=== PATIENT | male | born 1950 | race Caucasian/White ===

== ENCOUNTER 2016-10-15 07:42 | Outpatient (CLI) | payer MEDICARE, OTHER | END 2016-10-15 07:43 | disposition home or self-care (01) | DX: E78.5 Hyperlipidemia, unspecified (principal); J31.0 Chronic rhinitis ==

== ENCOUNTER 2017-11-10 08:00 | Outpatient (CLI) | payer MEDICARE, OTHER ==
[2017-11-10 12:44] LABS: BASOPHILS % (AUTO) 0.2 %; EOSINOPHILS # (AUTO) 0.2 10^3/uL (0.0-0.7); HGB - HEMOGLOBIN 14.4 g/dL (14.0-18.0); LYMPHOCYTES # (AUTO) 1.2 10^3/uL (1.5-3.5); LYMPHOCYTES % (AUTO) 27.9 %; MEAN CORPUSCULAR HEMOGLOBIN 33.1 pg (27.0-31.0); MEAN CORPUSCULAR HGB CONC 34.4 g/dL (32.0-36.0); MEAN CORPUSCULAR VOLUME 96.2 fL (80.0-94.0); MEAN PLATELET VOLUME 8.4 fL (7.4-11.4); MONOCYTES # (AUTO) 0.3 10^3/uL (0.0-1.0); MONOCYTES % (AUTO) 7.2 %; NEUTROPHILS # (AUTO) 2.5 10^3/uL (1.5-6.6); NEUTROPHILS % (AUTO) 59.7 %; PLT - PLATELET COUNT 184 10^3/uL (130-450); RED BLOOD COUNT 4.34 10^6/uL (4.70-6.10); RED CELL DISTRIBUTION WIDTH 12.7 % (12.0-15.0); WHITE BLOOD COUNT 4.3 x10^3/uL (4.8-10.8)
[2017-11-10 13:28] LABS: ALBUMIN 3.9 g/dL (3.2-5.5); ALBUMIN/GLOBULIN RATIO 1.1 (1.0-2.2); ALKALINE PHOSPHATASE 76 IU/L (42-121); ALT ALANINE AMINOTRANSFERASE 18 IU/L (10-60); AST ASPARTATE AMINOTRANSFERASE 23 IU/L (10-42); BILIRUBIN,TOTAL 1.1 mg/dL (0.2-1.0); BUN - BLOOD UREA NITROGEN 14 mg/dL (6-20); CALCIUM 8.9 mg/dL (8.5-10.3); CARBON DIOXIDE - CO2 27 mmol/L (21-32); CHLORIDE 105 mmol/L (101-111); CHOL/HDL RATIO 3.3 (<5.0); CHOLESTEROL 230 mg/dL; CREATININE 0.8 mg/dL (0.6-1.2); GFR - MDRD 96 (>89); GLUCOSE 98 mg/dL (70-100); HDL CHOLESTEROL 69 mg/dL; LDL CHOLESTEROL,CALCULATED 148 mg/dL; LDL/HDL RATIO 2.1 (<3.6); SODIUM 138 mmol/L (135-145); TOTAL PROTEIN 7.6 g/dL (6.7-8.2); VLDL CHOLESTEROL 13 mg/dL
== END 2017-11-10 08:01 ==
LOC: LAB.WCP 08:00
PROVIDERS: ATTEND Physician Assistant Medical
DX: I10 Essential (primary) hypertension (principal); N40.1 Benign prostatic hyperplasia with lower urinary tract symptoms; E78.5 Hyperlipidemia, unspecified
CPT/HCPCS: 36415; 80053; 80061; 85025; G0103; 83721; 84153

== ENCOUNTER 2018-07-03 09:08 | Outpatient (CLI) | payer MEDICARE, OTHER ==
[2018-07-03 14:04] LABS: ALBUMIN 4.2 g/dL (3.2-5.5); ALBUMIN/GLOBULIN RATIO 1.1 (1.0-2.2); ALKALINE PHOSPHATASE 86 IU/L (42-121); ALT ALANINE AMINOTRANSFERASE 18 IU/L (10-60); AST ASPARTATE AMINOTRANSFERASE 22 IU/L (10-42); BUN - BLOOD UREA NITROGEN 14 mg/dL (6-20); CALCIUM 9.2 mg/dL (8.5-10.3); CARBON DIOXIDE - CO2 28 mmol/L (21-32); CHLORIDE 106 mmol/L (101-111); CHOLESTEROL 287 mg/dL; CREATININE 0.8 mg/dL (0.6-1.2); GFR - MDRD 96 (>89); GLUCOSE 99 mg/dL (70-100); HDL CHOLESTEROL 71 mg/dL; LDL CHOLESTEROL,CALCULATED 202 mg/dL; LDL/HDL RATIO 2.8 (<3.6); SODIUM 140 mmol/L (135-145); TOTAL PROTEIN 7.9 g/dL (6.7-8.2); VLDL CHOLESTEROL 14 mg/dL
== END 2018-07-03 23:59 | disposition home or self-care (01) ==
LOC: LAB.WCP 09:08
PROVIDERS: ATTEND Physician Assistant Medical
DX: E78.5 Hyperlipidemia, unspecified (principal); I10 Essential (primary) hypertension; Z12.5 Encounter for screening for malignant neoplasm of prostate
CPT/HCPCS: 36415; 80053; 80061; G0103; 83721; 84153

== ENCOUNTER 2019-03-04 11:09 | Emergency (ER) | payer MEDICARE, OTHER ==
[2019-03-04] MEDS ORDERED: AMOXICILLIN 250 MG CAPSULE PO STA (12:05)
[2019-03-04] MEDS ORDERED: BUFFERED LIDOCAINE 10 ML SYRINGE SUBQ STA (12:05)
--- NOTE | 2019-03-04 12:06 | ED Physician Documentation ---
PD HPI HEAD INJURY - Stated complaint Stated Complaint: LIP LACERATION - Chief complaint Chief Complaint: Laceration - History obtained from History obtained from: Patient - History of Present Illness Mechanism of head injury: Blow (68-year-old gentleman who is up-to-date on tetanus stepped on a rake and the handle came up and impacted on the upper lip at home just prior to arrival. No loss of consciousness, no other injuries.) Review of Systems Constitutional: reports: Reviewed and negative Nose: reports: Reviewed and negative Throat: reports: Reviewed and negative PD PAST MEDICAL HISTORY - Past Medical History Past Medical History: Yes Cardiovascular: Hypertension, High cholesterol - Past Surgical History Past Surgical History: Yes - Present Medications Home Medications: Ambulatory Orders Medication Instructions Recorded Confirmed Amoxicillin 500 mg PO TID #20 capsule 03/04/19 Lisinopril [Zestril] 40 mg PO 03/04/19 Simvastatin 20 mg PO 03/04/19 03/04/19 - Allergies Allergies/Adverse Reactions: Allergies Allergy/AdvReac Type Severity Reaction Status Date / Time No Known Drug Allergies Allergy Verified 03/04/19 11:18 - Social History Does the pt smoke?: No Smoking Status: Never smoker Does the pt drink ETOH?: Yes ETOH Use: Liquor Does the pt have substance abuse?: No - Immunizations Immunizations are current?: Yes PD ED PE NORMAL - Vitals Vital signs reviewed: Yes - General General: Alert and oriented X 3, No acute distress - HEENT HEENT: Other (He has a through and through lip laceration of the upper right lip, the external component is an inverted V-shaped measuring a total of 1 cm, the internal component is also about a centimeter. There is no facial bony tenderness. He does have a chip in the canine on the maxilla on that side but he does not feel like that is new or acute.) - Neck Neck: Supple, no meningeal sign, No bony TTP - Neuro Neuro: Alert and oriented X 3, Normal speech Results - Vitals Vitals: Vital Signs - 24 hr 03/04/19 11:15 Temperature 36 C L Heart Rate 43 L Respiratory 16 Rate Blood Pressure 179/91 H O2 Saturation 99 Oxygen O2 Source Room air - EKG (time done) 1239 Rate: Rate (enter#) (73) Rhythm: Sinus bradycardia [place]: Normal Intervals: Normal DE QRS: LVH Ischemia: Normal ST segments Computer interpretation: Agree with computer Procedures - Laceration (location) Lip Length in cm: 2 Wound type: Other (through and through) Anesthesia: Lidocaine 1%, With bicarb Wound Preparation: Irrigated copiously NS Deep layer closure: Vicryl (single buried 5-0 in the inner lip) Skin layer closure: Prolene, Interrupted, Size #-0 - enter number (6-0), Sutures - enter # (3) Other: Tetanus UTD Complexity: Intermediate PD MEDICAL DECISION MAKING - ED course ED course: Of note he was found to be fairly bradycardic on vitals. You had a regular rate and rhythm on auscultation and an EKG was done showing sinus bradycardia with a suggestion of LVH. He is relatively symptomatic with this and his is giving a copy of the EKG and they will follow-up with their physician for consideration of echo and stress and cardiology consult. Departure - Departure Disposition: 01 Home, Self Care Clinical Impression: Bradycardia Lip laceration Qualifiers: Encounter type: initial encounter Qualified Code(s): S01.511A - Laceration without foreign body of lip, initial encounter Condition: Good Record reviewed to determine appropriate education?: Yes Instructions: ED Laceration Mouth Follow-Up: Julieth Evans PA-C [Primary Care Provider] - Prescriptions: Amoxicillin 500 mg PO TID #20 capsule Comments: Come back for any signs of infection which would include: Redness, swelling, drainage, increased pain, or fevers. You can wash it soap and water. Keep it covered and moist with bacitracin ointment which is available over the counter; avoid neosporin. Follow-up with your physician in 6 days for suture removal.
[2019-03-04 12:54] VITALS: BP 160/88
== END 2019-03-04 12:53 | disposition home or self-care (01) ==
LOC: ED 11:09
DX: S01.511A Laceration without foreign body of lip, initial encounter (principal); R00.1 Bradycardia, unspecified; W20.8XXA Other cause of strike by thrown, projected or falling object, initial encounter; I10 Essential (primary) hypertension
CPT/HCPCS: 12051; 93005; 99283; A9270

== ENCOUNTER 2019-06-29 07:08 | Outpatient (CLI) | payer MEDICARE, OTHER ==
[2019-06-29 13:56] LABS: ALBUMIN/GLOBULIN RATIO 1.1 (1.0-2.2); ALKALINE PHOSPHATASE 71 IU/L (42-121); ALT ALANINE AMINOTRANSFERASE 19 IU/L (10-60); AST ASPARTATE AMINOTRANSFERASE 23 IU/L (10-42); BILIRUBIN,TOTAL 0.9 mg/dL (0.2-1.0); BUN - BLOOD UREA NITROGEN 14 mg/dL (6-20); CARBON DIOXIDE - CO2 28 mmol/L (21-32); CHLORIDE 107 mmol/L (101-111); CHOL/HDL RATIO 4.4 (<5.0); CHOLESTEROL 288 mg/dL; CREATININE 0.8 mg/dL (0.6-1.2); GFR - MDRD 95 (>89); GLUCOSE 94 mg/dL (70-100); HDL CHOLESTEROL 66 mg/dL; LDL CHOLESTEROL,CALCULATED 197 mg/dL; SODIUM 138 mmol/L (135-145); TOTAL PROTEIN 7.6 g/dL (6.7-8.2); VLDL CHOLESTEROL 25 mg/dL
== END 2019-06-29 23:59 | disposition home or self-care (01) ==
LOC: LAB.WCP 07:08
PROVIDERS: ATTEND Physician Assistant Medical
DX: E78.5 Hyperlipidemia, unspecified (principal)
CPT/HCPCS: 36415; 80053; 80061; 83721

== ENCOUNTER 2020-02-29 08:00 | Outpatient (CLI) | payer MEDICARE, OTHER ==
[2020-02-29 12:11] LABS: CHOL/HDL RATIO 2.4 (<5.0); CHOLESTEROL 208 mg/dL; HDL CHOLESTEROL 88 mg/dL; LDL CHOLESTEROL,CALCULATED 109 mg/dL; LDL/HDL RATIO 1.2 (<3.6); VLDL CHOLESTEROL 11 mg/dL
== END 2020-02-29 23:59 | disposition home or self-care (01) ==
LOC: LAB.WCP 08:00
PROVIDERS: ATTEND Physician Assistant Medical
DX: E78.5 Hyperlipidemia, unspecified (principal)
CPT/HCPCS: 36415; 80061; 83721

== ENCOUNTER 2020-11-04 17:08 | Day surgery (SDC) | payer MEDICARE, OTHER ==
--- NOTE | 2020-11-04 17:35 | ED Physician Documentation ---
PD HPI UPPER EXT INJURY - Stated complaint Stated Complaint: FINGERS VS LAWNMOWER - Chief complaint Chief Complaint: Trauma Ext - History obtained from History obtained from: Patient - History of Present Illness Location: Left, Finger (4th and 5th digits.) Type of injury: Laceration (lawnmower blade) Where injury occurred: Home Timing - onset: How many hours ago (1) Timing - duration: Hours (1) Timing - details: Abrupt onset Pain level max: 6 Pain level now: 4 Improved by: Rest, Immobilization Worsened by: Moving, Palpating Contributing factors: No: Anticoagulated, Prior ortho surgery, Prosthetic joint - Additonal information Additional information: Td in 2019. patient is right handed. Cannot fully extend 5th digit. Review of Systems Ten Systems: 10 systems reviewed and negative Constitutional: denies: Fever, Chills GI: denies: Nausea, Vomiting Musculoskeletal: denies: Neck pain, Back pain Neurologic: denies: Headache PD PAST MEDICAL HISTORY - Past Medical History Cardiovascular: Hypertension, High cholesterol - Past Surgical History Past Surgical History: Yes - Present Medications Home Medications: Ambulatory Orders Medication Instructions Recorded Confirmed Amoxicillin 500 mg PO TID #20 capsule 03/04/19 Lisinopril [Zestril] 40 mg PO 03/04/19 Simvastatin 20 mg PO 03/04/19 03/04/19 HYDROcod/ACETAM 5/325 [[place] 5/325] 1 - 2 ea PO Q6H PRN #14 tablet 11/04/20 cephALEXin [Keflex] 500 mg PO Q6H #28 cap 11/04/20 - Allergies Allergies/Adverse Reactions: Allergies Allergy/AdvReac Type Severity Reaction Status Date / Time No Known Drug Allergies Allergy Verified 11/04/20 17:16 - Social History Does the pt smoke?: No Smoking Status: Never smoker Does the pt drink ETOH?: Yes Does the pt have substance abuse?: No - Immunizations Immunizations are current?: Yes PD ED PE NORMAL - Vitals Vital signs reviewed: Yes - General General: Alert and oriented X 3, No acute distress - HEENT HEENT: Moist mucous membranes - Neck Neck: Supple, no meningeal sign - Cardiac Cardiac: RRR - Respiratory Respiratory: No respiratory distress, Clear bilaterally - Abdomen Abdomen: Soft, Non tender, Non distended - Derm Derm: Warm and dry - Neuro Neuro: Alert and oriented X 3 - Psych Psych: Normal mood, Normal affect PD ED PE EXPANDED - Extremities OWEN UE/Hands Visual: 1 - laceration (2cm linear, no extension of the DIP joint, decreased sensation over distal tip.) 2 - laceration (1cm laceration, NVI. tendon intact.) Results - Vitals Vitals: Vital Signs - 24 hr 11/04/20 11/04/20 11/04/20 17:16 20:01 20:06 Temperature 36.1 C L 36.3 C L 36.6 C Heart Rate 46 L 60 64 Respiratory 20 15 14 Rate Blood Pressure 166/80 H 171/101 H 167/92 H O2 Saturation 100 100 100 11/04/20 11/04/20 11/04/20 20:11 20:16 20:26 Temperature 36.6 C 36.6 C 36.6 C Heart Rate 62 55 L 55 L Respiratory 15 10 L 10 L Rate Blood Pressure 169/97 H 181/102 H 160/92 H O2 Saturation 100 100 100 11/04/20 11/04/20 20:30 20:45 Temperature 36.8 C 36.7 C Heart Rate 57 L 55 L Respiratory 17 20 Rate Blood Pressure 159/78 H 154/83 H O2 Saturation 100 99 Oxygen O2 Source Room air - Labs Labs: Laboratory Tests 11/04/20 11/04/20 11/04/20 18:00 18:00 18:30 WBC 6.1 RBC 4.08 L Hgb 13.5 L Hct 38.6 L MCV 94.6 H MCH 33.1 H MCHC 35.0 RDW 12.2 Plt Count 174 MPV 9.5 Neut # (Auto) 4.7 Lymph # (Auto) 1.0 L [place] # (Auto) 0.4 Eos # (Auto) 0.1 Baso # (Auto) 0.0 Absolute Nucleated RBC 0.00 Nucleated RBC % 0.0 Sodium 137 Potassium 3.8 Chloride 102 Carbon Dioxide 28 Anion Gap 7.0 BUN 20 Creatinine 1.1 Estimated GFR (MDRD) 66 L Glucose 110 H Calcium 9.2 Nasal Adenovirus (PCR) NOT DETECTED Nasal B. parapertussis DNA (PCR) NOT DETECTED Nasal Coronavir 229E PCR NOT DETECTED Nasal Coronavir HKU1 PCR NOT DETECTED Nasal Coronavir NL63 PCR NOT DETECTED Nasal Coronavir OC43 PCR NOT DETECTED Nasal Enterovir/Rhinovir PCR NOT DETECTED Nasal Influenza B PCR NOT DETECTED Nasal Influenza A PCR NOT DETECTED Nasal Parainfluen 1 PCR NOT DETECTED Nasal Parainfluen 2 PCR NOT DETECTED Nasal Parainfluen 3 PCR NOT DETECTED Nasal Parainfluen 4 PCR NOT DETECTED Nasal RSV (PCR) NOT DETECTED Nasal B.pertussis DNA PCR NOT DETECTED Nasal C.pneumoniae (PCR) NOT DETECTED Jean Human Metapneumo PCR NOT DETECTED Nasal M.pneumoniae (PCR) NOT DETECTED Nasal SARS-CoV-2 (PCR) NOT DETECTED - Rads (name of study) L hand xray Radiology: Prelim report reviewed, EMP read contemporaneously, See rad report (IMPRESSION: Acute nondisplaced transverse fracture through distal shaft of fifth middle phalanx. Nondisplaced intra-articular fracture involving ulnar aspect of fourth distal phalangeal base. Displaced fracture involving ulnar aspect fourth distal phalangeal tuft. ) PD MEDICAL DECISION MAKING - ED course Complexity details: reviewed results, re-evaluated patient, considered differential, d/w patient, d/w systems consultant ED course: Patient is a 70-year-old male who presents to the emergency department with multiple lacerations due to lawnmower blades. The left fifth digit has an extensor tendon laceration over the dorsum of the middle phalanx. There is a associated fracture. Given Ancef. Discussed with orthopedics, Dr. Ramos who will come and evaluate the patient. He will take the patient to the OR for washout and repair. Tetanus up-to-date. This document was made in part using voice recognition software. While efforts are made to proofread this document, sound alike and grammatical errors may occur. Departure - Departure Disposition: ED Transfer to [facility] Clinical Impression: Tendon laceration, Bradycardia Open fracture of finger of left hand Qualifiers: Encounter type: initial encounter Finger: little finger Phalanx: middle Fracture alignment: nondisplaced Qualified Code(s): S62.657B - Nondisplaced fracture of middle phalanx of left little finger, initial encounter for open fracture Condition: Stable Discharge Date/Time: 11/04/20 19:22
--- NOTE | 2020-11-04 17:46 | XRAY Report ---
PROCEDURE: Hand 3 View LT INDICATIONS: L 4th and 5th digit vs lawnmower blade TECHNIQUE: 3 views of the hand(s) acquired. COMPARISON: None FINDINGS: Bones: Acute transverse fracture through distal shaft of fourth middle phalanx is seen. Oblique intra -articular fracture involving ulnar aspect of fourth distal phalangeal base is also seen. There is mi nimally displaced fracture involving ulnar aspect of fourth distal phalangeal tuft with slight proxim al and medial displacement. No other fracture or dislocation. No suspicious bony lesions. Soft tissues: No suspicious soft tissue calcifications. No radiopaque foreign body is seen. IMPRESSION: Acute nondisplaced transverse fracture through distal shaft of fifth middle phalanx. Nondisplaced int ra-articular fracture involving ulnar aspect of fourth distal phalangeal base. Displaced fracture inv olving ulnar aspect fourth distal phalangeal tuft. Reviewed by: Kt Albrecht MD on 11/04/2020 5:45 PM PDT Approved by: Kt Albrecht MD on 11/04/2020 5:45 PM PDT Station ID: [id number]
[2020-11-04] MEDS ORDERED: ceFAZolin 1 GM VIAL IVP STA (17:51)
[2020-11-04 18:06] LABS: BASOPHILS % (AUTO) 0.2 %; EOSINOPHILS # (AUTO) 0.1 10^3/uL (0.0-0.7); HCT - HEMATOCRIT 38.6 % (42.0-52.0); HGB - HEMOGLOBIN 13.5 g/dL (14.0-18.0); MEAN CORPUSCULAR HEMOGLOBIN 33.1 pg (27.0-31.0); MEAN CORPUSCULAR VOLUME 94.6 fL (80.0-94.0); MEAN PLATELET VOLUME 9.5 fL (7.4-11.4); MONOCYTES # (AUTO) 0.4 10^3/uL (0.0-1.0); MONOCYTES % (AUTO) 6.5 %; NEUTROPHILS # (AUTO) 4.7 10^3/uL (1.5-6.6); PLT - PLATELET COUNT 174 10^3/uL (130-450); RED BLOOD COUNT 4.08 10^6/uL (4.70-6.10); RED CELL DISTRIBUTION WIDTH 12.2 % (12.0-15.0); WHITE BLOOD COUNT 6.1 x10^3/uL (4.8-10.8)
[2020-11-04 18:15] LABS: CALCIUM 9.2 mg/dL (8.5-10.3); CREATININE 1.1 mg/dL (0.6-1.2); POTASSIUM 3.8 mmol/L (3.5-5.0)
[2020-11-04] MEDS ORDERED: MIDAZOLAM 2 MG/2 ML VIAL ONE (18:39)
[2020-11-04] MEDS ORDERED: ROPIVACAINE 0.5% PF 20 ML AMPULE ONE (18:49)
[2020-11-04] MEDS ORDERED: LIDOCAINE-PF 2% 10 ML AMP SUBQ ONE (18:49)
[2020-11-04] MEDS ORDERED: DEXAMETHASONE 10 MG/ML VIAL ONE (18:49)
[2020-11-04] MEDS ORDERED: LIDOCAINE-MPF 2% 5 ML VIAL ONE (18:51)
[2020-11-04] MEDS ORDERED: ceFAZolin 1 GM VIAL ONE (19:18)
[2020-11-04] MEDS ORDERED: LIDOCAINE 1% 50 ML MDV ONE (19:28)
[2020-11-04] MEDS ORDERED: KETAMINE 500 MG/10 ML VIAL ONE (19:31)
[2020-11-04] MEDS ORDERED: LIDOCAINE 1% 50 ML MDV SUBQ ONE ×2 (19:35)
[2020-11-04 19:49] LABS: B. PARAPERTUSSIS- RESP PCR PAN NOT DETECTED; B. PERTUSSIS- RESP PCR PANEL NOT DETECTED; C. PNEUMONIAE- RESP PCR PANEL NOT DETECTED; CORONAVIRUS 229E-RESP PCR NOT DETECTED; CORONAVIRUS HKU1-RESP PCR NOT DETECTED; CORONAVIRUS NL63-RESP PCR NOT DETECTED; CORONAVIRUS OC43-RESP PCR NOT DETECTED; HUMAN METAPNEUMOVIRUS NOT DETECTED; INFLUENZA A- RESP PCR PANEL NOT DETECTED; INFLUENZA B - RESP PCR PANEL NOT DETECTED; M. PNEUMONIAE- RESP PCR PANEL NOT DETECTED; PARAINFLUENZA VIRUS 1 NOT DETECTED; PARAINFLUENZA VIRUS 2 NOT DETECTED; PARAINFLUENZA VIRUS 3 NOT DETECTED; PARAINFLUENZA VIRUS 4 NOT DETECTED; RHINOVIRUS/ENTEROVIRUS NOT DETECTED; RSV- RESP PCR PANEL NOT DETECTED; SARS-CoV-2 -RESP PCR PANEL NOT DETECTED
[2020-11-04] MEDS ORDERED: LACTATED RINGERS 200 ML IV ONE (20:03)
[2020-11-04] MEDS ORDERED: HYDROcod/ACETAM 10 MG/325 MG TABLET PO PRN (20:03)
--- NOTE | 2020-11-04 20:11 | OPERATIVE REPORT ---
Operative Report - General Procedure Date: 11/04/20 Planned Procedure: Irrigation and debridement of open left 5th finger fracture and extensor tendon laceration repair Pre-Op Diagnosis: Open left 5th middle phalangeal fracture; extensor tendon laceration Procedure Performed: Irrigation and debridement of open left 5th finger fracture; repair of extensor tendon laceration Post Op Diagnosis: Same - Procedure Note Primary Surgeon: Colt Ramos MD Anesthesia Provider: Awais Hardin CRNA Anesthesia Technique: Regional block IV Fluids (mL): 300 Estimated Blood Loss (mL): 10 Complications: None
[2020-11-04] MEDS ORDERED: METOCLOPRAMIDE 10 MG/2 ML VIAL IVP PRN (20:16)
[2020-11-04] MEDS ORDERED: HYDROmorphone 0.5 MG/0.5 ML SYRINGE IVP PRN (20:16)
[2020-11-04] MEDS ORDERED: NALOXONE 0.4 MG/ML VIAL IVP PRN (20:16)
[2020-11-04] MEDS ORDERED: fentaNYL 100 MCG/2 ML VIAL IVP PRN (20:16)
[2020-11-04] MEDS ORDERED: ONDANSETRON 4 MG/2 ML VIAL IVP PRN (20:16)
[2020-11-04] MEDS ORDERED: ATROPINE ABBOJECT 1 MG/10 ML SYRINGE IVP PRN (20:16)
[2020-11-04] MEDS ORDERED: ePHEDrine 50 MG/ML VIAL IVP PRN (20:16)
[2020-11-04] MEDS ORDERED: MORPHINE 2 MG/ML CARPUJECT IVP PRN (20:16)
--- NOTE | 2020-11-04 20:20 | ANESTHESIA ---
Pre-Anesthesia VS, & Labs - Diagnosis left small finger laceration - Procedure I&D left small and ring finger, tendon repair Vital Signs: Temp Pulse Resp BP Pulse Ox 36.6 C 55 L 10 L 181/102 H 100 11/04/20 20:16 11/04/20 20:16 11/04/20 20:16 11/04/20 20:16 11/04/20 20:16 Height: 6 ft 1 in Weight (kg): 78.925 kg Body Mass Index: 22.9 BMI Classification: Healthy weight - NPO >8 hours - Lab Results Current Lab Results: Laboratory Tests 11/04/20 18:00: Sodium 137, Potassium 3.8, Chloride 102, Carbon Dioxide 28, Anion Gap 7.0, BUN 20, Creatinine 1.1, Estimated GFR (MDRD) 66 L, Glucose 110 H, Calcium 9.2 11/04/20 18:00: WBC 6.1, RBC 4.08 L, Hgb 13.5 L, Hct 38.6 L, MCV 94.6 H, MCH 33.1 H, MCHC 35.0, RDW 12.2, Plt Count 174, MPV 9.5, Neut # (Auto) 4.7, Lymph # (Auto) 1.0 L, [place] # (Auto) 0.4, Eos # (Auto) 0.1, Baso # (Auto) 0.0, Absolute Nucleated RBC 0.00, Nucleated RBC % 0.0 Lab results reviewed: Yes Fish Bones: 11/04/20 18:00 11/04/20 18:00 Home Medications and Allergies Active Medications Hydrocodone Bitart/Acetaminophen (Hydrocod/Acetam 10 Mg/325 Mg Tablet) 1 tab PO Q4HR PRN PRN Reason: PAIN Atropine Sulfate (Atropine Abboject 1 Mg/10 Ml Syringe) 0.5 mg IVP Q5M PRN PRN Reason: Bradycardia Stop: 11/05/20 20:16 Ephedrine Sulfate (Ephedrine 50 Mg/Ml Vial) 10 mg IVP Q5M PRN PRN Reason: HYPOTENSION Stop: 11/05/20 20:16 Fentanyl (Fentanyl 100 Mcg/2 Ml Vial) 25 - 50 mcg IVP Q5M PRN PRN Reason: BREAKTHROUGH PAIN (2nd Choice) Stop: 11/05/20 20:16 Hydromorphone HCl (Hydromorphone 0.5 Mg/0.5 Ml Syringe) 0.2 - 0.6 mg IVP Q5M PRN PRN Reason: PAIN (First Choice) Stop: 11/05/20 20:16 Lactated Ringer's (Lr) 1,000 mls @ 100 mls/hr IV .Q10H MARIKA Stop: 11/05/20 06:59 Metoclopramide HCl (Metoclopramide 10 Mg/2 Ml Vial) 10 mg IVP Q6HR PRN PRN Reason: N/V not relieved by Zofran Morphine Sulfate (Morphine 2 Mg/Ml Carpuject) 2 - 4 mg IVP Q5M PRN PRN Reason: PAIN (3rd Choice) Stop: 11/05/20 20:16 Naloxone HCl (Naloxone 0.4 Mg/Ml Vial) 0.1 mg IVP Q2M PRN PRN Reason: RESP RATE <8 Stop: 11/05/20 20:16 Ondansetron HCl (Ondansetron 4 Mg/2 Ml Vial) 4 mg IVP ONCE PRN PRN Reason: N/V (First Choice) Stop: 11/05/20 20:16 Lisinopril [Zestril] 40 mg PO 03/04/19 Simvastatin 20 mg PO 03/04/19 Allergies/Adverse Reactions: Allergies Allergy/AdvReac Type Severity Reaction Status Date / Time No Known Drug Allergies Allergy Verified 11/04/20 17:16 Anes History & Medical History - Anesthetic History Anesthesia Complications: reports: No previous complications Family history of Anesthesia Complications: Denies Family history of Malignant Hyperthermia: Denies - Medical History Cardiovascular: reports: Hypertension, High cholesterol Pulmonary: reports: None Endocrine/Autoimmune: reports: None Skin: reports: None Smoking Status: Never smoker Exam General: Alert, Oriented x3, Cooperative, No acute distress Dental: WNL Plan Anesthesia Type: MAC, Supraclavicular Block Regional Block: Per Surgeon's request for Post Op pain control Consent for Procedure(s) Verified and Reviewed: Yes Code Status: Attempt Resuscitation ASA classification: 2-Mild systemic disease Is this case an emergency?: No
--- NOTE | 2020-11-04 20:21 | ANESTHESIA POST OP EVALUATION ---
Anesthesia Post Eval - Post Anesthesia Eval Vitals: Last Vital Signs Temp 36.6 C 11/04/20 20:16 Pulse 55 L 11/04/20 20:16 Resp 10 L 11/04/20 20:16 BP 181/102 H 11/04/20 20:16 Pulse Ox 100 11/04/20 20:16 CV Function Including HR & BP: Stable Pain Control: Satisfactory Nausea & Vomiting: Negative Mental Status: Baseline Respiratory Status: Airway Patent Hydration Status: Satisfactory Anesthesia Complications: None
--- NOTE | 2020-11-04 20:33 | OPERATIVE REPORT ---
DATE OF SERVICE: 11/04/2020 Physician: Bob Ramos MD PREOPERATIVE DIAGNOSIS: Open left nondominant small finger middle phalangeal fracture; laceration of left fifth extensor tendon. POSTOPERATIVE DIAGNOSIS: Open left nondominant small finger middle phalangeal fracture; laceration o f left fifth extensor tendon. PROCEDURE PERFORMED: Irrigation and debridement of open left small finger fracture; primary repair o f left fifth extensor tendon laceration. SURGEON: Bob Ramos MD ANESTHESIA: Regional block. DESCRIPTION OF PROCEDURE: The patient was taken to the operating room on the evening of 11/04/2020 w here he was placed in a supraclavicular regional block. This block was supplemented with approximate ly 5 mL of 1% lidocaine without epinephrine performing a digital nerve block to the small finger. Af ter adequate anesthesia was obtained, we then prepped and draped the finger in the usual fashion for our procedure. We did apply an arm pneumatic tourniquet on the extremity, but did not inflate it dur ing the case. We then copiously irrigated the small finger and the ring fingertip laceration with st erile saline. A total of 2000 mL of saline were utilized during our washout. We then extended the l aceration on the small finger distally to obtain a better view of the distal portion of the extensor tendon laceration. Once this distal portion of the tendon was freed up and more easily viewed, we th en proceeded to repair the extensor tendon laceration using 1 horizontal mattress stitch of 4-0 nylon . Once the tendon was reapproximated, we then washed the wound again with saline. We then loosely a pproximated the skin lacerations of both the small and ring fingers. We then dressed the wounds with Xeroform gauze, sterile 4 x 4's, and a soft dressing applied to the fingers. A finger extension spl int was then applied, holding the DIP joint in extension. The patient was then awoken from his anest hesia and taken to the recovery room in satisfactory condition. ESTIMATED BLOOD LOSS: 10 mL REPLACEMENT: 300 mL crystalloid. INTRAOPERATIVE COMPLICATIONS: None. PLAN: The patient will be discharged when stable. He will follow up in [facility] in about a week's time for a wound check. Plan on keeping his finger in extension at the DIP joint for approxi mately 4 weeks before working on active assisted range of motion of the DIP joint. TD: 11/04/2020 20:31
[2020-11-04] MEDS ORDERED: LACTATED RINGERS 1,000 ML IV SCH (21:00)
[2020-11-04 21:37] VITALS: BP 143/70
== END 2020-11-04 21:50 | disposition home or self-care (01) ==
LOC: ED 17:08 → SDS 18:45 → MS2 20:38 → SDS 21:50
PROVIDERS: ATTEND Orthopaedic Surgery
PROC: 0LQ80ZZ Repair Left Hand Tendon, Open Approach (ICD-10-PCS; principal; 2020-11-04 19:15)
DX: S62.657B Nondisplaced fracture of middle phalanx of left little finger, initial encounter for open fracture (principal); S66.327A Laceration of extensor muscle, fascia and tendon of left little finger at wrist and hand level, initial encounter; S62.661B Nondisplaced fracture of distal phalanx of left index finger, initial encounter for open fracture; W28.XXXA Contact with powered lawn mower, initial encounter; Y93.H9 Activity, other involving exterior property and land maintenance, building and construction; I10 Essential (primary) hypertension; R00.1 Bradycardia, unspecified; E78.00 Pure hypercholesterolemia, unspecified; Z20.822 Contact with and (suspected) exposure to COVID-19; Z79.899 Other long term (current) drug therapy
CPT/HCPCS: 26418; 36415; 73130; 80048; 85025; 87631; 99284; 99285; J7120; 0202U

== ENCOUNTER 2020-12-16 08:26 | Outpatient (CLI) | payer MEDICARE ==
--- NOTE | 2020-12-16 09:17 | XRAY Report ---
PROCEDURE: Hand 3 View LT INDICATIONS: DISPLACED FX OF DISTAL PHALANX OF L RING FINGER TECHNIQUE: 3 views of the hand(s) acquired. COMPARISON: 11/04/2020 FINDINGS: Bones: Redemonstration of known transverse fracture involving the distal shaft of the fifth finger mi ddle phalanx. There is increased displacement with dorsal angulation of the distal fracture fragment. Additionally, there is increased distraction across the fracture fragment. Overlying soft tissue connor ma. Suggestion of early callus formation. Click echogenic other bone No suspicious bony lesions. Soft tissues: No suspicious soft tissue calcifications. IMPRESSION: Transverse fracture of the distal shaft of the left fourth finger middle phalanx demonstrates increas ed displacement of the distal fracture fragment which now shows increased distraction of the fracture fragment and dorsal angulation of the distal fracture fragment. Reviewed by: Rj Her MD on 12/16/2020 9:15 AM PDT Approved by: Rj Her MD on 12/16/2020 9:15 AM PDT Station ID: [id number]
== END 2020-12-16 23:59 | disposition home or self-care (01) ==
LOC: DI.N 08:26
PROVIDERS: ATTEND Physician Assistant
DX: S62.635G Displaced fracture of distal phalanx of left ring finger, subsequent encounter for fracture with delayed healing (principal)

== ENCOUNTER 2021-01-21 17:18 | Outpatient (CLI) | payer MEDICARE ==
--- NOTE | 2021-01-22 13:16 | XRAY Report ---
PROCEDURE: Shoulder 3 View RT INDICATIONS: SPRAIN OF R SHOULDER TECHNIQUE: 3 views of the shoulder were acquired. COMPARISON: None. FINDINGS: Bones: No fractures or dislocations. No suspicious bony lesions. Visualized ribs appear intact. Soft tissues: No suspicious soft tissue calcifications. IMPRESSION: Mild to moderate AC joint osteoarthritis. No trauma found. Mild glenohumeral joint osteo arthritis also. Reviewed by: Jak Mendoza MD on 01/22/2021 1:14 PM PDT Approved by: Jak Mendoza MD on 01/22/2021 1:14 PM PDT Station ID: [id number]
== END 2021-01-21 23:59 | disposition home or self-care (01) ==
LOC: DI.N 17:18
PROVIDERS: ATTEND Nurse Practitioner
DX: S43.491A Other sprain of right shoulder joint, initial encounter (principal); M19.011 Primary osteoarthritis, right shoulder

== ENCOUNTER 2021-03-05 07:32 | Outpatient (CLI) | payer MEDICARE ==
[2021-03-05 12:09] LABS: BASOPHILS % (AUTO) 0.2 %; EOSINOPHILS # (AUTO) 0.1 10^3/uL (0.0-0.7); HCT - HEMATOCRIT 42.3 % (42.0-52.0); HGB - HEMOGLOBIN 14.3 g/dL (14.0-18.0); LYMPHOCYTES # (AUTO) 1.3 10^3/uL (1.5-3.5); LYMPHOCYTES % (AUTO) 28.1 %; MEAN CORPUSCULAR HEMOGLOBIN 32.6 pg (27.0-31.0); MEAN CORPUSCULAR HGB CONC 33.8 g/dL (32.0-36.0); MEAN CORPUSCULAR VOLUME 96.4 fL (80.0-94.0); MEAN PLATELET VOLUME 9.9 fL (7.4-11.4); MONOCYTES # (AUTO) 0.4 10^3/uL (0.0-1.0); MONOCYTES % (AUTO) 8.2 %; NEUTROPHILS # (AUTO) 2.8 10^3/uL (1.5-6.6); NEUTROPHILS % (AUTO) 60.3 %; PLT - PLATELET COUNT 214 10^3/uL (130-450); RED BLOOD COUNT 4.39 10^6/uL (4.70-6.10); RED CELL DISTRIBUTION WIDTH 12.6 % (12.0-15.0); WHITE BLOOD COUNT 4.7 x10^3/uL (4.8-10.8)
[2021-03-05 12:48] LABS: ALBUMIN 4.2 g/dL (3.2-5.5); ALBUMIN/GLOBULIN RATIO 1.1 (1.0-2.2); ALKALINE PHOSPHATASE 86 IU/L (42-121); ALT ALANINE AMINOTRANSFERASE 22 IU/L (10-60); AST ASPARTATE AMINOTRANSFERASE 22 IU/L (10-42); BILIRUBIN,TOTAL 0.9 mg/dL (0.2-1.0); BUN - BLOOD UREA NITROGEN 13 mg/dL (6-20); CALCIUM 9.1 mg/dL (8.5-10.3); CARBON DIOXIDE - CO2 30 mmol/L (21-32); CHLORIDE 104 mmol/L (101-111); CHOL/HDL RATIO 2.8 (<5.0); CHOLESTEROL 224 mg/dL; CREATININE 0.9 mg/dL (0.6-1.2); GFR - MDRD 83 (>89); GLUCOSE 105 mg/dL (70-100); HDL CHOLESTEROL 81 mg/dL; LDL CHOLESTEROL,CALCULATED 131 mg/dL; LDL/HDL RATIO 1.6 (<3.6); POTASSIUM 4.5 mmol/L (3.5-5.0); SODIUM 142 mmol/L (135-145); TOTAL PROTEIN 7.9 g/dL (6.7-8.2); TRIGLYCERIDES 58 mg/dL; VLDL CHOLESTEROL 12 mg/dL
== END 2021-03-05 23:59 | disposition home or self-care (01) ==
LOC: LAB.WCP 07:32
PROVIDERS: ATTEND Physician Assistant Medical
DX: E78.5 Hyperlipidemia, unspecified (principal); K21.9 Gastro-esophageal reflux disease without esophagitis
CPT/HCPCS: 36415; 80053; 80061; 83721; 85025

== ENCOUNTER 2022-08-01 15:13 | Emergency (ER) | payer MEDICARE ==
[2022-08-01 15:29] VITALS: BP 136/71
--- NOTE | 2022-08-01 15:39 | ED Physician Documentation ---
PD HPI UPPER EXT INJURY - Stated complaint Stated Complaint: R HAND LAC - Chief complaint Chief Complaint: Laceration - History obtained from History obtained from: Patient - Additonal information Additional information: He was moving a furnace on a tato and it slipped and he got his right hand caught. He has a skin tear on the dorsum of the right hand and a swollen area on the third PIP. He has some discomfort with full extension of the hand. No other injuries. Tetanus is up-to-date. PD PAST MEDICAL HISTORY - Past Medical History Cardiovascular: Hypertension, High cholesterol Respiratory: None Endocrine/Autoimmune: None Derm: None - Past Surgical History Past Surgical History: Yes - Present Medications Home Medications: Ambulatory Orders Medication Instructions Recorded Confirmed Amoxicillin 500 mg PO TID #20 capsule 03/04/19 Lisinopril [Zestril] 40 mg PO 03/04/19 Simvastatin 20 mg PO 03/04/19 03/04/19 HYDROcod/ACETAM 5/325 [[place] 5/325] 1 - 2 ea PO Q6H PRN #14 tablet 11/04/20 cephALEXin [Keflex] 500 mg PO Q6H #28 cap 11/04/20 - Allergies Allergies/Adverse Reactions: Allergies Allergy/AdvReac Type Severity Reaction Status Date / Time No Known Drug Allergies Allergy Verified 11/04/20 17:16 - Social History Does the pt smoke?: No Smoking Status: Never smoker Does the pt drink ETOH?: Yes Does the pt have substance abuse?: No - Immunizations Immunizations are current?: Yes - POLST Patient has POLST: No PD ED PE NORMAL - Vitals Vital signs reviewed: Yes - General General: Alert and oriented X 3, No acute distress - Extremities Extremities: Other (There is some swelling on the radial side of the third DIP of the right hand without tenderness or limited range of motion. 2 shallow skin tears on the dorsum of the right hand without tenderness or limited range of motion.) - Neuro Neuro: Alert and oriented X 3, Normal speech Results - Vitals Vitals: Vital Signs - 24 hr 08/01/22 15:25 Temperature 37 C Heart Rate 45 L Respiratory 16 Rate Blood Pressure 136/71 H O2 Saturation 100 Oxygen O2 Source Room air - Rads (name of study) Three-view x-ray of the right hand was normal. Radiology: Final report received, EMP read indepedently Procedures - Laceration (location) Right hand Length in cm: 2 Wound type: Superficial Wound preparation: Irrigated copiously NS Skin layer closure: Dermabond, Steri strips Other: Tetanus UTD Departure - Departure Disposition: 01 Home, Self Care Clinical Impression: Contusion of right hand Qualifiers: Encounter type: initial encounter Qualified Code(s): S60.221A - Contusion of right hand, initial encounter Skin tear of right hand without complication Qualifiers: Encounter type: initial encounter Qualified Code(s): S61.411A - Laceration without foreign body of right hand, initial encounter Condition: Good Record reviewed to determine appropriate education?: Yes Instructions: ED Laceration Ext Skin Glue Comments: Tylenol and/or ibuprofen as needed for pain per package instructions. You can wash with soap and water briefly but otherwise you can pretty much just baby the hand. Return for new or worsening symptoms. Follow-up with your doctor in a week if not improved. Discharge Date/Time: 08/01/22 15:57
--- NOTE | 2022-08-01 16:39 | XRAY Report ---
PROCEDURE: Hand 3 View RT INDICATIONS: Blunt hand injury TECHNIQUE: 3 views of the hand(s) acquired. COMPARISON: 12/16/2020 FINDINGS: Bones: No fractures or dislocations. No suspicious bony lesions. Arthritic changes noted in the in terphalangeal joints Soft tissues: No suspicious soft tissue calcifications. IMPRESSION: Degenerative changes without fracture or foreign body Reviewed by: Brennen Frank MD on 08/01/2022 3:38 PM AKST Approved by: Brennen Frank MD on 08/01/2022 3:38 PM AKST Station ID: [id number]
== END 2022-08-01 15:57 | disposition home or self-care (01) ==
LOC: ED 15:13
DX: S61.411A Laceration without foreign body of right hand, initial encounter (principal); W23.0XXA Caught, crushed, jammed, or pinched between moving objects, initial encounter; I10 Essential (primary) hypertension
CPT/HCPCS: 12001; 99283

== ENCOUNTER 2022-10-01 08:00 | Outpatient (CLI) | payer MEDICARE ==
[2022-10-01 12:02] LABS: ALBUMIN 4.3 g/dL (3.2-5.5); ALBUMIN/GLOBULIN RATIO 1.1 (1.0-2.2); ALKALINE PHOSPHATASE 85 IU/L (42-121); ALT ALANINE AMINOTRANSFERASE 15 IU/L (10-60); AST ASPARTATE AMINOTRANSFERASE 22 IU/L (10-42); BILIRUBIN,TOTAL 0.9 mg/dL (0.2-1.0); BUN - BLOOD UREA NITROGEN 15 mg/dL (6-20); CALCIUM 9.2 mg/dL (8.5-10.3); CARBON DIOXIDE - CO2 30 mmol/L (21-32); CHLORIDE 106 mmol/L (101-111); CHOL/HDL RATIO 3.2 (<5.0); CHOLESTEROL 265 mg/dL; CREATININE 0.8 mg/dL (0.6-1.2); GFR - MDRD 94 (>89); GLUCOSE 97 mg/dL (70-100); HDL CHOLESTEROL 84 mg/dL; LDL CHOLESTEROL,CALCULATED 171 mg/dL; POTASSIUM 4.5 mmol/L (3.5-5.0); SODIUM 139 mmol/L (135-145); TOTAL PROTEIN 8.2 g/dL (6.7-8.2); TRIGLYCERIDES 49 mg/dL; VLDL CHOLESTEROL 10 mg/dL
== END 2022-10-01 08:01 | disposition home or self-care (01) ==
LOC: LAB.N 08:00
PROVIDERS: ATTEND Physician Assistant Medical
DX: E78.5 Hyperlipidemia, unspecified (principal)
CPT/HCPCS: 36415; 80053; 80061; 83721

== ENCOUNTER 2023-02-14 10:56 | Outpatient (CLI) | payer MEDICARE ==
[2023-02-14 18:27] LABS: ALBUMIN 4.4 g/dL (3.2-5.5); ALBUMIN/GLOBULIN RATIO 1.3 (1.0-2.2); ALKALINE PHOSPHATASE 88 IU/L (42-121); ALT ALANINE AMINOTRANSFERASE 15 IU/L (10-60); AST ASPARTATE AMINOTRANSFERASE 19 IU/L (10-42); BILIRUBIN,TOTAL 0.8 mg/dL (0.2-1.0); BUN - BLOOD UREA NITROGEN 10 mg/dL (6-20); CALCIUM 9.6 mg/dL (8.5-10.3); CARBON DIOXIDE - CO2 30 mmol/L (21-32); CHLORIDE 104 mmol/L (101-111); CHOL/HDL RATIO 2.8 (<5.0); CHOLESTEROL 232 mg/dL; CREATININE 0.8 mg/dL (0.6-1.3); GFR - MDRD 94 (>89); GLUCOSE 94 mg/dL (74-104); HDL CHOLESTEROL 83 mg/dL; LDL CHOLESTEROL,CALCULATED 133 mg/dL; LDL/HDL RATIO 1.6 (<3.6); POTASSIUM 4.3 mmol/L (3.5-4.5); SODIUM 138 mmol/L (135-145); TOTAL PROTEIN 7.9 g/dL (6.4-8.9); TRIGLYCERIDES 81 mg/dL (48-352); VLDL CHOLESTEROL 16 mg/dL
== END 2023-02-14 10:57 | disposition home or self-care (01) ==
LOC: LAB.N 10:56
PROVIDERS: ATTEND Physician Assistant Medical
DX: E78.5 Hyperlipidemia, unspecified (principal)
CPT/HCPCS: 36415; 80053; 80061; 83721

== ENCOUNTER 2024-01-20 07:39 | Outpatient (CLI) | payer MEDICARE ==
[2024-01-20 12:21] LABS: BASOPHILS % (AUTO) 0.2 %; EOSINOPHILS # (AUTO) 0.1 10^3/uL (0.0-0.7); EOSINOPHILS % (AUTO) 3.1 %; HCT - HEMATOCRIT 39.2 % (42.0-52.0); HGB - HEMOGLOBIN 12.8 g/dL (14.0-18.0); LYMPHOCYTES # (AUTO) 1.1 10^3/uL (1.5-3.5); LYMPHOCYTES % (AUTO) 26.1 %; MEAN CORPUSCULAR HEMOGLOBIN 32.4 pg (27.0-31.0); MEAN CORPUSCULAR HGB CONC 32.7 g/dL (32.0-36.0); MEAN CORPUSCULAR VOLUME 99.2 fL (80.0-94.0); MEAN PLATELET VOLUME 10.2 fL (7.4-11.4); MONOCYTES # (AUTO) 0.4 10^3/uL (0.0-1.0); MONOCYTES % (AUTO) 8.4 %; NEUTROPHILS # (AUTO) 2.6 10^3/uL (1.5-6.6); PLT - PLATELET COUNT 189 10^3/uL (130-450); RED BLOOD COUNT 3.95 10^6/uL (4.70-6.10); RED CELL DISTRIBUTION WIDTH 12.4 % (12.0-15.0); WHITE BLOOD COUNT 4.2 x10^3/uL (4.8-10.8)
[2024-01-20 12:49] LABS: ALBUMIN 4.4 g/dL (3.2-5.5); ALBUMIN/GLOBULIN RATIO 1.4 (1.0-2.2); ALKALINE PHOSPHATASE 87 IU/L (42-121); ALT ALANINE AMINOTRANSFERASE 16 IU/L (10-60); AST ASPARTATE AMINOTRANSFERASE 20 IU/L (10-42); BILIRUBIN,TOTAL 0.8 mg/dL (0.2-1.0); BUN - BLOOD UREA NITROGEN 13 mg/dL (6-20); CALCIUM 9.6 mg/dL (8.5-10.3); CARBON DIOXIDE - CO2 31 mmol/L (21-32); CHLORIDE 104 mmol/L (101-111); CHOL/HDL RATIO 2.5 (<5.0); CHOLESTEROL 181 mg/dL; CREATININE 0.8 mg/dL (0.6-1.3); GFR - MDRD 94 (>89); GLUCOSE 98 mg/dL (74-104); HDL CHOLESTEROL 72 mg/dL; LDL CHOLESTEROL,CALCULATED 95 mg/dL; LDL/HDL RATIO 1.3 (<3.6); SODIUM 139 mmol/L (135-145); TOTAL PROTEIN 7.5 g/dL (6.4-8.9); TRIGLYCERIDES 69 mg/dL; VLDL CHOLESTEROL 14 mg/dL
== END 2024-01-20 07:40 | disposition home or self-care (01) ==
LOC: LAB.N 07:39
PROVIDERS: ATTEND Physician Assistant Medical
DX: N40.0 Benign prostatic hyperplasia without lower urinary tract symptoms (principal); J45.909 Unspecified asthma, uncomplicated; E78.5 Hyperlipidemia, unspecified
CPT/HCPCS: 36415; 80053; 80061; 83721; 84153; 85025

== ENCOUNTER 2024-03-01 18:48 | Outpatient (CLI) | payer MEDICARE ==
--- NOTE | 2024-03-03 11:28 | XRAY Report ---
PROCEDURE: Elbow 1-2V LT INDICATIONS: SPONTANEOUS RUPTURE OF OTHER TENDONS TECHNIQUE: 3 views of the elbow were acquired. COMPARISON: None. FINDINGS: Bones: No fractures or dislocations. No suspicious bony lesions. Soft tissues: No effusion. Calcifications at the lateral margin of the lateral humeral epicondyle w hich could represent sequela of remote trauma or calcific tendinitis. IMPRESSION: No acute bony abnormality or significant joint effusion. Reviewed by: Rowan Manzano MD, PhD on 03/03/2024 11:27 AM PDT Approved by: Rowan Manzano MD, PhD on 03/03/2024 11:27 AM PDT Station ID: [id number]
== END 2024-03-01 18:49 | disposition home or self-care (01) ==
LOC: DI 18:48
PROVIDERS: ATTEND Physician Assistant Medical
DX: M66.822 Spontaneous rupture of other tendons, left upper arm (principal)

== ENCOUNTER 2024-03-15 12:10 | Outpatient (CLI) | payer MEDICARE ==
[2024-03-15 17:49] LABS: EOSINOPHILS # (AUTO) 0.1 10^3/uL (0.0-0.7); EOSINOPHILS % (AUTO) 1.6 %; HCT - HEMATOCRIT 39.1 % (42.0-52.0); LYMPHOCYTES # (AUTO) 1.4 10^3/uL (1.5-3.5); LYMPHOCYTES % (AUTO) 27.9 %; MEAN CORPUSCULAR HEMOGLOBIN 32.7 pg (27.0-31.0); MEAN CORPUSCULAR HGB CONC 33.2 g/dL (32.0-36.0); MEAN CORPUSCULAR VOLUME 98.5 fL (80.0-94.0); MEAN PLATELET VOLUME 10.4 fL (7.4-11.4); MONOCYTES # (AUTO) 0.3 10^3/uL (0.0-1.0); MONOCYTES % (AUTO) 6.5 %; NEUTROPHILS # (AUTO) 3.1 10^3/uL (1.5-6.6); NEUTROPHILS % (AUTO) 63.8 %; PLT - PLATELET COUNT 186 10^3/uL (130-450); RED BLOOD COUNT 3.97 10^6/uL (4.70-6.10); RED CELL DISTRIBUTION WIDTH 12.2 % (12.0-15.0); WHITE BLOOD COUNT 4.9 x10^3/uL (4.8-10.8)
[2024-03-15 18:50] LABS: FERRITIN 141.6 ng/mL (23.9-336.2)
== END 2024-03-15 12:11 | disposition home or self-care (01) ==
LOC: LAB.N 12:10
PROVIDERS: ATTEND Physician Assistant Medical
DX: D64.9 Anemia, unspecified (principal)
CPT/HCPCS: 36415; 82607; 82728; 82746; 85025